=== PATIENT | female | born 1945 | race Caucasian/White ===

== ENCOUNTER 2017-11-10 01:56 | Emergency (ER) | payer OTHER ==
[~2017-11-10] VITALS: Ht 162.6 cm; Wt 88.2 kg
[2017-11-10 05:08] LABS: HEMATOCRIT 38.6 % (36.0-46.0); HEMOGLOBIN 13.3 G/DL (11.9-15.5); MCH 30.9 PG (29.0-34.0); MCHC 34.5 G/DL (30.0-36.0); MCV 89.6 FL (83-99); PLATELET COUNT 192 K/uL (156-360); RBC DIS.WIDTH-CV 12.9 % (11.8-14.6); RBC DIS.WIDTH-SD 42.7 % (39-53); RED BLOOD COUNT 4.31 M/uL (3.80-5.20); WHITE BLOOD COUNT 7.7 K/uL (4.1-10.2)
[2017-11-10 05:15] LABS: INTER. NORMALIZED RATIO 0.9
[2017-11-10 05:18] LABS: PTT 29.9 SEC (25-37)
[2017-11-10 05:22] LABS: CHLORIDE 106 mEq/L (99-109); SODIUM 144 mEq/L (136-147)
[2017-11-10 05:24] LABS: GLUCOSE 112 mg/dL (70-99)
[2017-11-10 05:28] LABS: GFR ESTIMATE (CALCULATED) 58 mL/min/; UREA NITROGEN (BUN) 17 mg/dL (9-23)
[2017-11-10] MEDS ORDERED: KEFLEX500 MG PO (06:02)
[2017-11-10 06:42] VITALS: BP 156/94
== END 2017-11-10 06:49 | disposition home or self-care (01) ==
LOC: EME 01:56
PROVIDERS: Emergency Medicine
DX: L03.115 Cellulitis of right lower limb (principal); L03.116 Cellulitis of left lower limb; R22.43 Localized swelling, mass and lump, lower limb, bilateral; I10 Essential (primary) hypertension; E78.5 Hyperlipidemia, unspecified
CPT/HCPCS: 80048; 85027; 85610; 85730; 93970; 99281; 99285